=== PATIENT | female | born 1965 | race Two or more races ===

== ENCOUNTER 2024-07-11 15:39 | Outpatient (REF) | payer OTHER, SELFPAY ==
--- OUTSIDE RECORDS SUMMARY | 2024-07-11 18:52 | XMS_ITS | Clinical Summary ---
Author Organization [facility] Address [address] [place] [address] Phone Care Team Providers Care Electroplating Sales Representative Name Role Phone Beatrice Manuel Primary Care Provider [phone] Allergies Active Allergy Reactions Criticality Noted Date Comments Black Pepper 04/13/2024 Throat closes Kiwi 05/15/2024 [place] Itching 04/13/2024 Peanut Itching 04/13/2024 Peanut Butter Flavor Itching 04/13/2024 Medications polyethylene glycol (Golytely) 236-22.74-6.74 -5.86 gram solution Take 4L by mouth once for one dose. May substitue any PEG. Starting at 6PM the night before your procedure drink 1 8oz glasses at your own pace until you complete half of the gallon. Finish 2nd half of the gallon 5 hours before your procedure. 4000 mL Active Additional Information Patient not taking.Reported on 05/15/2024 bisacodyL (DULCOLAX) 5 mg EC tablet Take 2 tablets by mouth right before beginning bowel prep. See instructions provided by the office 2 tablet Active Additional Information Patient not taking.Reported on 05/15/2024 EPINEPHrine (EpiPen 2-Enmanuel) 0.3 mg/0.3 mL injection Inject 0.3 mL (0.3 mg total) into the thigh if needed. Active fexofenadine (Rochelle Hives) 180 mg tablet Take 1 tablet (180 mg total) by mouth if needed. Active atorvastatin (LIPITOR) 10 mg tablet Take 1 tablet (10 mg total) by mouth at bedtime. Active Encounters Date Type Department Care Team Description 05/15/2024 Telephone Gastroenterology [facility] [address] [address] Leelee Alberto MD Special Procedure 05/08/2024 Telephone Gastroenterology [facility] 175 [facility] [address] [address] Leelee Alberto MD information needed from Last 3 Months Social History Tobacco Use Types Packs/Day Years Used Date Smoking Tobacco: Never Assessed Comments Unknown Sex and Gender Information Value Date Recorded Sex Assigned at Not on file Legal Sex Female 8:58 PM EST Gender Identity Not on file Sexual Orientation Not on file Last Filed Vital Signs Vital Sign Reading Time Taken Comments Blood Pressure - - Pulse - - Temperature - - Respiratory Rate - - Oxygen Saturation - - Inhaled Oxygen Concentration - - Weight 70.8 kg (156 lb) 04/13/2024 3:00 PM EST Height 167.6 cm (5' 6 ) 04/13/2024 3:00 PM EST Body Mass Index 25.18 04/13/2024 3:00 PM EST Plan of Treatment Upcoming Encounters Date Type Department Care Team (Late st Contact Info) Description 07/19/2024 3:30 PM EDT Consult Orthopedics - [place] [address] [place], [place] [phone] Tato Cyr PA [address] [place] [address] 09/28/2024 3:00 PM EDT Appointment [facility] [address] [place] [address] Morro Davis DO [address] [address] Health Maintenance Due Date Last Done Comments Breast Cancer Screening 1965 DTaP,Tdap,and Td Vaccines (1 - Tdap) 10/16/1982 Cervical Cancer Screening: P ap Smear 10/16/1984 Pneumococcal Vaccine: 50+ Ye ars (1 of 1 - PCV) 10/16/2013 Zoster Vaccines (1 of 2) 10/16/2013 Colorectal Cancer Screening: Colonoscopy 06/03/2023 Depression Screening 06/03/2023 HIV Screening 06/03/2023 Hepatitis C Screening 06/03/2023 Social Influencers of Health Screening 06/03/2023 COVID-19 Vaccine (1 - 2023-2 5 season) 2024 Influenza Vaccine (#1) 2024 RSV Immunization Patients 60 + Years Old (1 - 1-dose 75+ series) 10/16/2038 HIB Vaccines Aged Out No longer eligi ble based on patient's age to complete this topic HPV Vaccines Aged Out No longer eligi ble based on patient's age to complete this topic Hepatitis A Vaccines Aged Out No long er eligible based on patient's age to complete this topic Hepatitis B Vaccines Aged Out No long er eligible based on patient's age to complete this topic IPV Vaccines Aged Out No longer eligi ble based on patient's age to complete this topic MMR Vaccines Aged Out No longer eligi ble based on patient's age to complete this topic Meningococcal ACWY Vaccine Aged Out N o longer eligible based on patient's age to complete this topic Meningococcal B Vacine Aged Out No lo nger eligible based on patient's age to complete this topic Pneumococcal Vaccine: Pediat rics (0 to 5 Years) and At-Risk Patients (6 to 64 Years) Aged Out No longer eligible b ased on patient's age to complete this topic RSV Immunization Patients Un quan 20 months Aged Out No longer eligible b ased on patient's age to complete this topic Varicella Vaccines Aged Out No longer eligible based on patient's age to complete this topic Insurance [facility] Care Teams Electroplating Sales Representative Relationship Specialty Start Date End Date Beatrice Manuel [address] [place] [address] PCP - General 09/30/22
--- OUTSIDE RECORDS SUMMARY | 2024-07-11 18:52 | XMS_ITS | Clinical Summary ---
Author Organization [facility] Address [address] [place] [address] Care Team Providers Care Education Supervisor Name Role Phone Beatrice Manuel NP Primary Care Provider [phone] Source Comments PLEASE NOTE, if this patient is a minor, it may be UNLAWFUL to discuss sensitive information that is contained in these records (such as FAMILY PLANNING, MENTAL HEALTH or SUBSTANCE ABUSE) with the minor patient's parent or other person without the patient's specific authorization.[facility] Allergies Active Allergy Reactions Criticality Noted Date Comments Black Pepper Swelling 09/29/2022 Kiwi 09/29/2022 Mangoes 09/29/2022 Peanuts 09/29/2022 Medications atorvastatin (LIPITOR) 10 mg tabletIndication s:Elevated LDL cholesterol level Take 1 Tablet by mouth nightly at bedtime 90 Tablet 1 4 Active EPINEPHrine (EPIPEN) 0.3 mg/0.3 mL pen injectorIndicati ons:Allergy, initial encounter Inject 0.3 mL into the muscle as needed for anaphylaxis 2 Each 4 Active fexofenadine (KHANH) 180 mg tablet Take 1 Tablet by mouth once daily 90 Tablet 1 4 Active Active Problems Problem Noted Date Diagnosed Date Prediabetes 11/04/2023 Overweight (BMI 25.0-29.9) 11/04/2023 Elevated LDL cholesterol level 11/04/2023 Multiple joint pain 09/29/2022 Encounters Date Type Department Care Team Description 05/15/2024 3:00 PM EST Office Visit [address] [address] Anand Davsi MD Lopez, Iris Screening for HPV (human papillomavirus) (Primary Dx); Encounter for screening mammogram for malignant neoplasm of breast 05/15/2024 Travel 05/07/2024 1:20 PM EST Office Visit [facility] [place] [id number] Beatrice Manuel NP Prediabetes (Primary Dx); Screen for colon cancer; Elevated LDL cholesterol level; Multiple joint pain; Swelling of finger joint, unspecified laterality; Immunization due; Neck pain; Allergy, initial encounter 05/07/2024 Travel from Last 3 Months Immunizations Name Administration Dates Next Due Influenza (FLUBLOK),recombinant,injectable,preservative Free 02/06/2024 PNEUMOCOCCAL POLYSACCHARIDE PPV23 09/29/2022 TDAP 09/29/2022 ZOSTER VACCINE, RECOMBINANT (SHINGRIX) ,09/29/2022 Family History Medical History Relation Name Comments Arthritis Other Diabetes Other Hypertension Other Relation Name Status Comments Father Alive Mother Alive Other Social History Tobacco Use Types Packs/Day Years Used Date Smoking Tobacco: Never Smokeless Tobacco: Never Tobacco Cessation:Counseling Given: Not Answered Alcohol Use Standard Drinks/Week Comments Never 0 (1 standard drink = 0.6 oz pur e alcohol) Social Connections Answer Date Recorded Connectedness 1 05/07/2024 Financial Resource Strain Answer Date R ecorded Financial Resource Strain 1 2023 Stress Answer Date Recorded Stress 1 05/07/2024 Physical Activity Answer Date Recorded Physical Activity 0 09/29/2022 Food Insecurity Answer Date Recorded Food 1 05/07/2024 Transportation Needs Answer Date Record ed Transportation 1 05/07/2024 Housing Stability Answer Date Recorded Housing 1 05/07/2024 Safety and Environment Answer Date Adrien rded Safety 0 09/29/2022 Utilities Answer Date Recorded Utilities 1 05/07/2024 Employment Answer Date Recorded Stress 0 09/29/2022 Comments No Sex and Gender Information Value Date Recorded Sex Assigned at Female 09/29/2022 11:37 AM PDT Legal Sex Female 6:22 AM PST Gender Identity Female 09/29/2022 11:37 AM PDT Sexual Orientation Straight 09/29/2022 11 :37 AM PDT Occupation Industry Job Start Date Job End Date unemployed Not on file Not on file Not on file Last Filed Vital Signs Vital Sign Reading Time Taken Comments Blood Pressure 140/77 05/15/2024 2:49 PM EST Pulse 67 05/15/2024 2:49 PM EST Temperature 36.9 ??C (98.5 ??F) 05/07/2024 1:10 PM ES T Respiratory Rate 16 05/15/2024 2:49 PM EST Oxygen Saturation 99% 05/15/2024 2:49 PM EST Inhaled Oxygen Concentration - - Weight 73.5 kg (162 lb) 05/15/2024 2:49 PM EST Height 157.5 cm (5' 2 ) 05/15/2024 2:49 PM EST Body Mass Index 29.63 05/15/2024 2:49 PM EST Plan of Treatment Health Maintenance Due Date Last Done Comments HPV Screening 1965 CT Colonography 10/16/2008 Colonoscopy 10/16/2008 Colorectal Cancer Screening 10/16/2008 FIT/gFOBT 10/16/2008 Fecal DNA 10/16/2008 Flexible Sigmoidoscopy 10/16/2008 Breast Cancer Screening (Mammogram) 08/20/2023 08/19/2022 [id number] ( season) 2024 Alcohol and Drug Screen 05/09/2024 11/01/19, 09/29/2022 Depression Annual Screen 05/09/2024 05/07/2024 Annual Preventive Care Visit 10/31/2024 11/01/2023 Tobacco Screening 11/20/2024 11/21/2023, 11/01/2023 Diabetes Screening 05/07/2025 05/07/2024, 11/03/2023, 11/03/2023 Lipid Screening 05/07/2025 05/07/2024, 11/03/2023 Hypertension Screening (#1) 05/15/2025 Pap Smear 05/15/2027 05/15/2024 Cervical Cancer Screening 05/15/2029 Pap + HPV 05/15/2029 05/15/2024 Imm-DTaP/Tdap/Td (2 - Td or Tdap) 09/29/2032 09/29/2022 HIV Screening Completed 11/03/2023 Hepatitis C Screening Completed 11/03/2023 Imm-Influenza Completed 02/06/2024 Imm-Zoster, Recombinant Completed 05/07/20 24, 09/29/2022 Cervical Ablation/Cold-Knife Conization Discontinued Cervical Cryotherapy Discontinued Colposcopy Discontinued Endometrial Biopsy Discontinued Excision/Leep Discontinued HPV Genotyping Discontinued Imm-Hepatitis B Aged Out No longer el igible based on patient's age to complete this topic Vaginal Pap Discontinued Vulvoscopy Discontinued Procedures Procedure Name Priority Date/Time Associated Diagnosis Comments THIN PREP IMAGE PAP + HPV RNA E6/E7 W/RFLX HPV 16, 18/45 Routine 05/15/2024 3:01 PM EST Screening for HPV (human papillomavirus) TSH W/RFLX FREE T4 Routine 05/07/2024 1: 40 PM EST LIPID PANEL Routine 05/07/2024 1:40 PM EST Elevated LDL cholesterol level HEMOGLOBIN GLYCOSYLATED A1C Routine 05/07/2024 1:40 PM EST Prediabetes HIV 1/2 AG & AB W/RFLX (4TH GEN) Routine 11/03/2023 9:00 AM EDT Routine general medical examination at a health care facility HEPATITIS C AB W/RFLX HCV RNA, QT, RT PCR Routine 11/03/2023 9:00 AM EDT Routine general medical examination at a health care facility from Last 3 Months or Most Recently Relevant to Health Maintenance Results * THIN PREP IMAGE PAP + HPV RNA E6/E7 W/RFLX HPV 16, 18/45 (05/15/2024 3:01 PM EST) CLINICAL INFORMATION See Note [facility] Comment:Postmenopausal LMP See Note [facility] Comment:NONE GIVEN PREV. PAP See Note [facility] Comment:NONE GIVEN PREV. BX See Note [facility] Comment:NONE GIVEN SOURCE See Note [facility] Comment:Cervix STATEMENT OF ADEQUACY See Note [facility] Comment: Satisfactory for evaluation. Endocervical/transformation zone component present. INTERPRETATION/RESU LT See Note [facility] Comment: Cytology Results: Negative for intraepithelial lesion or malignancy. COMMENT See Note [facility] Comment: This Pap test has been evaluated with computer assisted technology. RESEARCH LABORATORY TECHNICIAN See Note [facility] Comment: YP, CT(ASCP) CT screening location: [address] ??[address] COMMENT [facility] HPV MRNA E6/E7 Not Detected Not Detected [facility] Comment: Methodology: Pack Worker Supervisor-Mediated Amplification This assay detects E6/E7 viral messenger RNA (mRNA) from 14 high-risk HPV types (16,18,31,33,35,39,45,51,52,56,58,59,66,68). Cervical sources are required for HPV testing. If a vaginal source from a patient who has had a total hysterectomy with removal of cervix was submitted, please contact the testing laboratory for alternative testing options. For additional information, please refer to http://education.Activism.com/faq/BHE778z3 (This link if provided for information/ educational purposes only.) Swab Cervix uteri structure / Unknown 05/15/2024 3:01 PM EST 05/16/2024 2:32 AM EST Narrative [facility] - 05/18/2024 1:29 PM EST EXPLANATORY NOTE: The Pap is a screening test for cervical cancer. It is not a diagnostic test and is subject to false negative and false positive results. It is most reliable when a satisfactory sample, regularly obtained, is submitted with relevant clinical findings and history, and when the Pap result is evaluated along with historic and current clinical information. us Anand Davis MD LAB - NO BLOOD DRAW Final Resul t [facility] [address] [address], [facility] [address] [address] * TSH W/RFLX FREE T4 (05/07/2024 1:40 PM EST) TSH W/REFLEX TO FT4 1.10 0.40 - 4.50 mIU/L [facility] 05/07/2024 1:40 PM EST 05/07/2024 1:41 PM EST Narrative [facility] - 05/08/2024 5:34 AM EST FASTING:NO Beatrice Manuel NP LAB - BLOOD DRAW Final Resul t Performing Organization Address [facility] de Phone Number [facility] [address] [address], [facility] [address] [address] * HEMOGLOBIN GLYCOSYLATED A1C (05/07/2024 1:40 PM EST) HEMOGLOBIN A1C 5.6 <5.7 % of total Hgb [facility] Comment: For the purpose of screening for the presence of diabetes: <5.7% ? Consistent with the absence of diabetes 5.7-6.4% ?Consistent with increased risk for diabetes ?(prediabetes) > or =6.5% ??Consistent with diabetes This assay result is consistent with a decreased risk of diabetes. Currently, no consensus exists regarding use of hemoglobin A1c for diagnosis of diabetes in children. According to [place] Diabetes Association (ADA) guidelines, hemoglobin A1c <7.0% represents optimal control in non- diabetic patients. Different metrics may apply to specific patient populations. Standards of Medical Care in Diabetes(ADA). ?? Blood Blood / Unknown 05/07/2024 1 :40 PM EST 05/07/2024 1:41 PM EST Narrative [facility] - 05/08/2024 5:34 AM EST FASTING:NO Beatrice Manuel NP LAB - BLOOD DRAW Edited Resu lt - Final Performing Organization Address City/[facility]/ZIP Co de Phone Number [facility] [address] [address], [facility] [address] [address] * (ABNORMAL) LIPID PANEL (05/07/2024 1:40 PM EST) CHOLESTEROL, TOTAL 247(H) <200 mg/dL [facility] HDL CHOLESTEROL 49(L) > OR = 50 mg/dL [facility] TRIGLYCERIDES 147 <150 mg/dL [facility] LDL-CHOLESTEROL 169(H) 99 mg/dL (calc) [facility] Comment: Reference range: <100 Desirable range <100 mg/dL for primary prevention; ?? <70 mg/dL for patients with CHD or diabetic patients with > or = 2 CHD risk factors. LDL-C is now calculated using the Marlin calculation, which is a validated novel method providing better accuracy than the Friedewald equation in the estimation of LDL-C. Levi SS et al. KORTNEY. 2013;310(19): 3705-7221 (http://education.FaithStreet/faq/RAY496) CHOL/HDLC RATIO 5.0(H) <5.0 (calc) [facility] NON-HDL CHOLESTEROL 198(H) <130 mg/dL (calc) [facility] Comment: For patients with diabetes plus 1 major ASCVD risk factor, treating to a non-HDL-C goal of <100 mg/dL (LDL-C of <70 mg/dL) is considered a therapeutic option. Blood Blood / Unknown 05/07/2024 1 :40 PM EST 05/07/2024 1:41 PM EST Narrative [facility] - 05/08/2024 5:34 AM EST FASTING:NO Beatrice Manuel NP LAB - BLOOD DRAW Final Resul t [facility] [address] [place] [id number], [facility] [address] [place] [phone] * HEPATITIS C AB W/RFLX HCV RNA, QT, RT PCR (11/03/2023 9:00 AM EDT) HEPATITIS C ANTIBODY NON-REACT FELIZ NON-REACT FELIZ [facility] Comment: HCV antibody was non-reactive. There is no laboratory evidence of HCV infection. In most cases, no further action is required. However, if recent HCV exposure is suspected, a test for HCV RNA (test code 57825) is suggested. For additional information please refer to http://ROCKI.Activism.com/faq/LKY51n2 (This link is being provided for informational/ educational purposes only.) Blood Blood / Unknown 11/03/2023 9 :00 AM EDT 11/03/2023 9:01 AM EDT Narrative [facility] - 11/04/2023 9:18 PM EDT FASTING:YES us Beatrice Manuel NP LAB - BLOOD DRAW Edited Resu lt - Final Performing Organization Address [facility]/ZIP Co de Phone Number [facility] [address] [address], [facility] [address] [address] * HIV 1/2 AG & AB W/RFLX (4TH GEN) (11/03/2023 9:00 AM EDT) [facility] HIV AG/AB, 4TH GEN NON-REAC TIVE NON-REAC TIVE [employer] [facility] Comment: HIV-1 antigen and HIV-1/HIV-2 antibodies were not detected. There is no laboratory evidence of HIV infection. PLEASE NOTE: This information has been disclosed to you from records whose confidentiality may be protected by state law. ??If your state requires such protection, then the state law prohibits you from making any further disclosure of the information without the specific written consent of the person to whom it pertains, or as otherwise permitted by law. A general authorization for the release of medical or other information is NOT sufficient for this purpose. ?? For additional information please refer to http://education.Yardsale.AppVault/faq/WKC012 (This link is being provided for informational/ educational purposes only.) The performance of this assay has not been clinically validated in patients less than 2 years old. Blood Blood / Unknown 11/03/2023 9 :00 AM EDT 11/03/2023 9:01 AM EDT Narrative [facility] - 11/04/2023 9:18 PM EDT FASTING:YES us Beatrice Manuel NP LAB - BLOOD DRAW Final Resul t Performing Organization Address [facility]/ZIP Co de Phone Number [facility] [address] [address], [facility] [address] [address] from Last 3 Months or Most Recently Relevant to Health Maintenance Insurance [employer] Member Subscriber Plan / Payer (Ef fective 2023-Present) Name:Karen Barajas Relation to Subscriber:Self Name:Karen Barajas C Payer ID:[id number] Type:Indemnity Address: [facility] [address] [place] [address] Care Teams Education Supervisor Relationship Specialty Start Date End Date Beatrice Manuel NP [address] [place] [address] PCP - General Internal Medicine 06/23/22
== END 2024-07-11 15:40 | disposition home or self-care (01) ==
LOC: HO.SH 15:39
PROVIDERS: Visit Provider Nurse Practitioner
DX: Z01.118 Encounter for examination of ears and hearing with other abnormal findings (principal); H92.02 Otalgia, left ear
CPT/HCPCS: 92553; 92555; 92567